=== PATIENT | male | born 1960 | race Caucasian/White ===

== ENCOUNTER 2018-04-17 10:32 | Outpatient (CLI) | payer OTHER ==
--- NOTE | 2018-04-17 13:44 | ULT ---
LEFT LOWER EXTREMITY VENOUS ULTRASOUND: Date: 04/17/18 HISTORY: I82.409. COMPARISON: None. TECHNIQUE: Real-time Olivarez scale and color Doppler with spectral analysis of the left lower extremity venous sys tem was performed. Common femoral, femoral, proximal portions of greater saphenous and deep femoral v ein, as well as the popliteal and posterior tibial veins were interrogated. FINDINGS: There is nonocclusive thrombus in the left distal femoral and popliteal veins. Remainder of the veins have normal flow, augmentation, and compression. IMPRESSION: Positive for deep venous thrombosis, nonocclusive, left femoral and popliteal veins. Dr. López notified of findings via telephone at 1115 hours. Patient is to go to Dr. López's office. CODE CR. POS: [facility]
== END 2018-04-17 10:33 | disposition home or self-care (01) ==
LOC: ULT 10:32
PROVIDERS: ATTEND Internal Medicine Critical Care Medicine
DX: I82.409 Acute embolism and thrombosis of unspecified deep veins of unspecified lower extremity (principal); I82.412 Acute embolism and thrombosis of left femoral vein

== ENCOUNTER 2024-06-03 10:41 | Outpatient (CLI) | payer BC | END 2024-06-03 10:42 | disposition home or self-care (01) | LOC: RAD 10:41 | PROVIDERS: ATTEND Internal Medicine Critical Care Medicine | DX: R06.00 Dyspnea, unspecified (principal) | CPT/HCPCS: 71046 ==

== ENCOUNTER 2025-04-29 07:37 | Outpatient (CLI) | payer BC | END 2025-04-29 07:38 | disposition home or self-care (01) | LOC: LABBT 07:37 | PROVIDERS: ATTEND Student in an Organized Health Care Education/Training Program | DX: Z01.818 Encounter for other preprocedural examination (principal); M16.11 Unilateral primary osteoarthritis, right hip | CPT/HCPCS: 71046; 87081; 93005; 93010 ==

== ENCOUNTER 2025-05-04 06:31 | Observation (INO) | payer BC ==
[2025-04-29 08:19] VITALS: BMI 26.5
[2025-04-29 09:19] LABS: #Basophils 0.06 10x3/uL (0.0-0.2); #Eosinophils 0.23 10x3/uL (0.0-0.7); #Monocytes 0.45 10x3/uL (0.11-0.59); #Neutrophils 2.20 10x3/uL (1.40-6.50); %Basophils 1.1 % (0.0-1.0); %Eosinophils 4.3 % (0.0-10.0); %Lymphocytes 45.4 % (21.0-51.0); %Monocytes 8.3 % (0.0-10.0); %Neutrophils 40.7 % (42.0-75.0); Hematocrit 46.0 % (42.0-52.0); Hemoglobin 15.3 g/dL (14.0-18.0); Mean Corpuscular Hemoglobin 32.1 pg (27.0-31.0); Mean Corpuscular Volume 96.4 fL (78.0-98.0); Platelet Count 223 10x3/uL (130-400); Red Blood Cell (RBC) Count 4.77 mill/uL (4.70-6.10); White Blood Cell (WBC) Count 5.40 10x3/uL (4.8-10.8)
[2025-04-29 09:37] LABS: INR-International Normal Ratio 1.3; Prothrombin Time 16.1 sec (12.0-14.7)
[2025-04-29 09:46] LABS: Anion Gap 12 mmol/L (10-20); BUN (Urea Nitrogen) 13 mg/dL (8.4-25.7); Calc. Creatinine Clearance 0 mL/min (70-130); Calcium 9.1 mg/dL (7.8-10.44); Carbon Dioxide 26 mmol/L (23-31); Chloride 106 mmol/L (98-107); Glucose 102 mg/dL (80-115); Potassium 4.3 mmol/L (3.5-5.1); Sodium 140 mmol/L (136-145)
[2025-05-04] MEDS ORDERED: CEFAZOLIN 2 GM VIAL ONE (09:06)
[2025-05-04] MEDS ORDERED: Lidocaine 1% PF 5 ML VIAL ONE (09:55)
[2025-05-04] MEDS ORDERED: fentaNYL PF 100 MCG/2 ML SYRINGE ONE (09:55)
[2025-05-04] MEDS ORDERED: PROPOFOL 20 ML ONE (09:55)
[2025-05-04] MEDS ORDERED: Tranexamic Acid 1,000 MG/10 ML VIAL ONE (09:58)
[2025-05-04] MEDS ORDERED: Vancomycin HCl 1.5 GM VIAL ONE (09:58)
[2025-05-04] MEDS ORDERED: Ketamine In 0.9 % NaCl 50 MG/5 ML SYRINGE ONE (10:01)
[2025-05-04] MEDS ORDERED: Rocuronium Bromide 10 MG/ML (10ML VIAL) ONE (10:13)
[2025-05-04] MEDS ORDERED: Ondansetron PF 4 MG/2 ML Vial ONE (10:27)
[2025-05-04] MEDS ORDERED: HYDROmorphone 2 MG/ML VIAL ONE (10:40)
[2025-05-04] MEDS ORDERED: SUGAMMADEX SODIUM 200 MG/2 ML VIAL ONE (12:49)
[2025-05-04] MEDS ORDERED: Ondansetron PF 4 MG/2 ML Vial IVP PRN (15:37)
[2025-05-04] MEDS ORDERED: diphenhydrAMINE 25 MG CAP PO PRN (15:37)
[2025-05-04] MEDS ORDERED: oxyCODONE 5 MG TAB PO PRN (15:37)
[2025-05-04] MEDS: Acetaminophen 500 MG TAB PO SCH (16:46)
[2025-05-04] MEDS: FLU (Fluarix Triv) 25-26 (6MOS UP)/PF 45 MCG/0.5 ML Syringe IM ONE (19:47)
[2025-05-04] MEDS: Ferrous Gluconate 324 MG TAB PO SCH (20:13)
[2025-05-04] MEDS: Senokot S 8.6-50 MG TAB PO SCH (20:14)
[2025-05-05] MEDS: oxyCODONE 5 MG TAB PO PRN (01:51)
[2025-05-05 05:14] LABS: Hematocrit 33.4 % (42.0-52.0); Hemoglobin 11.2 g/dL (14.0-18.0); Mean Corpuscular Hemoglobin 32.3 pg (27.0-31.0); Mean Corpuscular Volume 96.3 fL (78.0-98.0); Platelet Count 167 10x3/uL (130-400); Red Blood Cell (RBC) Count 3.47 mill/uL (4.70-6.10); White Blood Cell (WBC) Count 9.42 10x3/uL (4.8-10.8)
[2025-05-05 05:46] LABS: Anion Gap 11 mmol/L (10-20); BUN (Urea Nitrogen) 13 mg/dL (8.4-25.7); Calc. Creatinine Clearance 82 mL/min (70-130); Calcium 8.0 mg/dL (7.8-10.44); Carbon Dioxide 25 mmol/L (23-31); Chloride 107 mmol/L (98-107); Glucose 133 mg/dL (80-115); Potassium 3.7 mmol/L (3.5-5.1); Sodium 139 mmol/L (136-145)
[2025-05-05] MEDS: Multivitamin W/ Minerals 1 TAB PO SCH (09:02)
[2025-05-05 16:17] VITALS: BP 123/76; TEMP 98.7
== END 2025-05-05 16:25 | disposition home or self-care (01) ==
LOC: SDC 06:31 → SURG A 13:14
PROVIDERS: ADMIT Student in an Organized Health Care Education/Training Program; ATTEND Student in an Organized Health Care Education/Training Program
PROC: 0SR90JZ Replacement of Right Hip Joint with Synthetic Substitute, Open Approach (ICD-10-PCS; principal; 2025-05-04)
DX: M16.11 Unilateral primary osteoarthritis, right hip (principal)
CPT/HCPCS: 36415; 72170; 80048; 85025; 85027; 85610; 86850; 86900; 86901; C1776; J0169; J0665; J1100; J1171; J2405; J2704; J3010; J3373; J3490

== ENCOUNTER 2025-06-08 08:57 | Outpatient (CLI) | payer BC | END 2025-06-08 08:58 | disposition home or self-care (01) | LOC: RAD 08:57 | PROVIDERS: ATTEND Internal Medicine Critical Care Medicine | DX: R06.00 Dyspnea, unspecified (principal) | CPT/HCPCS: 71046 ==